=== PATIENT | male | born 1965 | race Caucasian/White ===

== ENCOUNTER 2023-05-12 00:01 | Emergency (ER) | payer BC, SELFPAY ==
[2023-05-12 00:13] VITALS: BP 154/84
[2023-05-12 00:49] VITALS: BP 132/80; BMI 27.6
[2023-05-12 00:55] LABS: % Basophils 0.8 % (0-2); % Eosinophils 2.3 % (0-6); % Immature Granulocytes 0.3 % (0-0.5); % Monocytes 8.7 % (1.7-9.3); % Neutrophils 65.9 % (42.2-75.2); Absolute Basophils 0.1 10^3/uL (0-0.2); Absolute Eosinophils 0.2 10^3/uL (0-0.7); Absolute Lymphocytes 1.7 10^3/uL (1.2-3.4); Absolute Monocytes 0.7 10^3/uL (0.1-0.6); Absolute Neutrophils 5.2 10^3/uL (1.4-6.5); Hematocrit 47.3 % (39.0-52.0); Hemoglobin 16.1 g/dL (13.0-18.0); Mean Corpuscular Hgb 31.9 pg (27.0-31.0); Mean Corpuscular Volume 93.8 fL (80.0-94.0); Mean Platelet Volume 11.9 fL (7.4-10.4); Nucleated Red Blood Cells % 0 % (-); Platelet Count 153 10^3/uL (130-400); Red Blood Cell Count 5.04 10^6/uL (4.70-6.10); Red Cell Dist. Width 12.7 % (11.5-14.5); White Blood Cell Count 7.8 10^3/uL (4.8-10.8)
[2023-05-12 01:00] VITALS: BP 142/78
[2023-05-12 01:00] LABS: ALT (SGPT) 48 U/L (0-50); AST (SGOT) 59 U/L (17-59); Albumin 3.9 g/dl (3.5-5.0); Alkaline Phosphatase 95 U/L (38-126); Blood Urea Nitrogen 27 mg/dl (9-20); Calcium 8.9 mg/dl (8.4-10.2); Carbon Dioxide 28 mmol/L (22-30); Chloride 103 mmol/L (98-107); Estimated Creatinine Clearance 53 ml/min; Glucose 98 mg/dl (70-99); Sodium 138 mmol/L (135-145); Total Bilirubin 0.4 mg/dl (0.2-1.3); Total Protein 6.2 g/dl (6.3-8.2)
--- NOTE | 2023-05-12 01:03 | ED.GENMED ---
History of Present Illness
General
Chief Complaint: Heart Rate Problem
Source: patient
Exam Limitations: none
Time Seen by Provider: 05/12/23 00:43
Travel History
Have you had any contact with someone who has COVID-19?: No
Do you have any symptoms of coronavirus? Fever > 100 degrees, chills, cough, shortness of breath, sore throat, loss of taste or smell, muscle aches, or headache?: No
History of Present Illness
History of Present Illness:
57-year-old male for 2 weeks has noted an irregular heartbeat at times. Feels like a premature like beat. No fluttering no racing. No chest pain shortness of breath or other complaints. Patient exercises regularly without difficulty.
Past History
Past History
ED Past Surgical History: Other (Hernia repair)
Social History
Tobacco: Non-smoker
Personal:
Living: with family
Review of Systems
Review of Systems
All Other Systems: Not applicable
Constitutional: Reports no symptoms
Respiratory: Denies trouble breathing
Cardiac: Denies chest pain or syncope
Phy Exam
Physical Exam
Physical Exam:
GENERAL: Alert and oriented in no apparent distress
EYE: Orbits normal.
NECK: Supple, no thyroid palpable
ENT: Pharynx without erythema
CARDIAC: Minimally bradycardic. Regular. Occasional irregular beat that correlates with his PACs
LUNGS: Clear breath sounds,normal
ABDOMEN: Soft, without focal tenderness or distention
NEUROLOGICAL: Alert and oriented , grossly non-focal
SKIN: Warm and dry, no rash or lesion, no discoloration, skin intact.
MUSCULOSKELETAL: No edema,no deformity.Good color
PSYCH: Normal and appropriate interaction.
Course
Orders/Labs/Results
Orders:
Orders
05/12/23 00:16
Electrocardiogram (*1) Urgent
Reason for Study: Palpitations
EKG- Treatment ONCE
05/12/23 00:31
CMP [Comprehensive Metabolic Panel] Urgent
Complete Blood Count/With Diff Urgent
Abnormal Lab Results
05/12/23
00:31
MCH 31.9 H pg
(27.0-31.0)
MPV 11.9 H fL
(7.4-10.4)
Absolute Monos (auto) 0.7 H 10^3/uL
(0.1-0.6)
BUN 27 H mg/dl
(9-20)
Creatinine 1.4 H mg/dL
(0.7-1.3)
Total Protein 6.2 L g/dl
(6.3-8.2)
05/12/23 00:31
05/12/23 00:31
Vital Signs
Initial and Last Documented VS:
Initial Vital Signs
Temp Pulse Resp BP Pulse Ox
97.8 F 54 18 154/84 97
05/12/23 00:13 05/12/23 00:13 05/12/23 00:13 05/12/23 00:13 05/12/23 00:13
Last Documented Vital Signs
Temp Pulse Resp BP Pulse Ox
97.8 F 61 12 132/80 100
05/12/23 00:13 05/12/23 00:49 05/12/23 00:49 05/12/23 00:49 05/12/23 00:52
*Pulse Oximetry
Patient hypoxic: no
*EKG
Interpreted by ED Provider?: Yes
Comparison EKG: no changes
Heart Rate: 55
Rate: bradycardiac
Rhythm: sinus and PAC's
[place]: normal axis
Interval: normal interval
QRS Pattern: normal QRS
Ischemia: no ischemia
*Critical Care Note
Total Time (30-74mins, 75-104mins- exclusive of procedures): Not Applicable
Update Note
Update Note:
Patient is remained stable and nontoxic. Aware of minimal creatinine elevation. This has been an ongoing issue and is remained stable
ED Attending Note
-
Portions of this chart may have been created with voice recognition software.� Occasional wrong word or��sound alike� substitutions may have occurred due to the inherent limitations of voice recognition software.
Discharge Plan
Departure
Patient Disposition: Home (Routine Discharge)
Date of Disposition: 05/12/23
Time of Disposition: :27
Patient with high blood pressure during this ER visit?: No
Discharge Problem:
Palpitations/PACs
Instructions: Palpitations (DC), Premature Ventricular Contraction
Prescriptions:
No Action
atorvastatin [Lipitor] 40 mg Tablet
40 mg PO DAILY
aspirin 81 mg Tablet,Chewable
81 mg PO DAILY
testosterone 200 mg Pellet
200 mg SC WEEKLY
Referrals:
UNKNOWN - PT DOES,NOT KNOW [Family Provider] -
Activity Restrictions/Additional Instructions:
Follow-up with your primary physician
I gave you the instruction for the PVCs. You do not have those, yours or PACs. Instructions are similar.
Interventions
Interventions:
*Risk Screen - Suicide Last Done: 05/12/23 00:13
*General Assessment Last Done: 05/12/23 00:50
*Neglect/Abuse Screening Last Done: 05/12/23 00:13
ED- Fall Risk Assessment Last Done: 05/12/23 00:52
*ED COVID-19 Vaccine History Last Done: 05/12/23 00:50
ED- Cardiac Assessment Last Done: 05/12/23 00:52
ED- Pulmonary Assessment Last Done: 05/12/23 00:52
== END 2023-05-12 01:45 | disposition home or self-care (01) ==
LOC: EMR 00:01
PROVIDERS: Student in an Organized Health Care Education/Training Program; EMERGENCY PHYSICIAN Emergency Medicine; FAMILY PHYSICIAN Internal Medicine
DX: R00.2 Palpitations (principal)
CPT/HCPCS: 99284; 80053; 85025; 93005